=== PATIENT | male | born 1950 | race Hispanic/Latino ===

== ENCOUNTER 2019-02-27 14:13 | Observation (INO) | payer OTHER ==
[~2019-02-27] VITALS: Ht 177.8 cm; Wt 114.3 kg
[2019-02-27] MEDS ORDERED: FUROSEMIDE 10 MG/ML 4ML VIAL ONE (15:09)
[2019-02-27 15:14] LABS: BASOPHILS % (AUTO) 0.8 % (0.0-5.0); EOSINOPHILS % (AUTO) 4.9 % (0.0-8.0); LYMPHOCYTES % (AUTO) 26.2 % (21.0-51.0); MEAN CORPUSCULAR HEMOGLOBIN 29.9 pg (27.0-33.0); MEAN CORPUSCULAR HGB CONC 32.1 g/dL (32.0-36.0); MEAN CORPUSCULAR VOLUME 93.2 fL (79-99); MONOCYTES % (AUTO) 7.2 % (3.0-13.0); NEUTROPHILS % (AUTO) 60.9 % (40.0-77.0); PLATELET COUNT (AUTO) 209 K/uL (130-400); RED BLOOD CELL COUNT(AUTO) 3.65 MIL/uL (4.50-6.20); RED CELL DISTRIBUTION WIDTH 14.2 % (11.0-15.5)
[2019-02-27 15:23] LABS: CREATININE 2.8 mg/dL (0.5-1.5); POTASSIUM 3.7 mmol/L (3.5-5.1)
[2019-02-27 15:30] LABS: ALBUMIN 3.6 g/dL (3.5-5.0); BILIRUBIN,TOTAL 0.2 mg/dL (0.2-1.0); TOTAL PROTEIN, SERUM 7.7 g/dL (6.0-8.3)
[2019-02-27 15:43] LABS: B-TYPE NATRIURETIC PEPTIDE 176 pg/mL (0-100)
[2019-02-27 17:17] VITALS: BP 175/90
[2019-02-27] MEDS ORDERED: ATOR40TA69 PO (18:32)
[2019-02-27] MEDS ORDERED: VITA400C70 PO (18:32)
[2019-02-27] MEDS ORDERED: B12/1TAB3 PO (18:32)
[2019-02-27] MEDS ORDERED: ALLO100T PO (18:32)
[2019-02-27] MEDS ORDERED: FINA5TAB41 PO (18:32)
[2019-02-27] MEDS ORDERED: FERR-82 PO (18:32)
[2019-02-27] MEDS ORDERED: MONT10TA24 PO (18:32)
[2019-02-27] MEDS ORDERED: SPIR25TA PO (18:32)
[2019-02-27] MEDS ORDERED: FOLI0.8T43 PO (18:32)
[2019-02-27] MEDS ORDERED: TORS20TA4 PO (18:32)
[2019-02-27] MEDS ORDERED: HYDR-4154 PO (18:32)
[2019-02-27] MEDS ORDERED: METO200T49 PO (18:32)
[2019-02-27] MEDS ORDERED: RIVA15TA PO (18:32)
[2019-02-27] MEDS ORDERED: CHOL200074 PO (18:32)
[2019-02-27] MEDS ORDERED: INSNOV SQ (18:34)
[2019-02-27 19:00] VITALS: BP 141/79
[2019-02-27] MEDS ORDERED: SODIUM CHLORIDE 0.9% 10 ML VIAL IVP PRN (19:00)
[2019-02-27] MEDS ORDERED: CLONIDINE HCL 0.1 MG TABLET PO PRN (19:00)
[2019-02-27] MEDS ORDERED: LACTULOSE 20 GM/30 ML UDCUP PO PRN (19:00)
[2019-02-27] MEDS ORDERED: ONDANSETRON HCL 4 MG/2 ML VIAL IVP PRN (19:00)
[2019-02-27] MEDS: SPIRONOLACTONE 25 MG TAB PO SCH (21:12)
[2019-02-27] MEDS: MONTELUKAST SODIUM 10 MG TAB PO SCH (21:12)
[2019-02-27] MEDS: ATORVASTATIN CALCIUM 40 MG TABLET PO SCH (21:12)
[2019-02-27] MEDS ORDERED: ACETAMINOPHEN 325 MG TAB PO PRN ×2 (21:30)
[2019-02-27] MEDS ORDERED: MORPHINE SULFATE 4 MG/1ML SYG IV PRN (21:30)
[2019-02-27] MEDS ORDERED: LORAZEPAM 2 MG/ML 1 ML VIAL IVP PRN (21:30)
[2019-02-27] MEDS ORDERED: MORPHINE SULFATE 2 MG/ML 1ML SYG IV PRN (21:30)
[2019-02-27] MEDS ORDERED: ONDANSETRON HCL 4 MG/2 ML VIAL IV PRN (21:30)
[2019-02-27] MEDS: PHARMACY COMMUNICATION MISC SCH (21:30)
--- NOTE | 2019-02-27 22:04 | NUR ---
PA was called and notified pt. has insulin pump and B/S 54 and pt remained alert and coherent ,asymptomatic HS snack was given and consumed 100% rechecked B/S =74.No new order received.
[2019-02-27] MEDS: HYDRALAZINE HCL 25 MG TABLET PO SCH (22:09)
[2019-02-27] MEDS: NITROGLYCERIN 1GM/1 INCH PACKET TD SCH (22:10)
[2019-02-27 23:00] VITALS: BP 129/67
[2019-02-27] MEDS: IPRATROPIUM/ALBUTEROL SULFATE 3 ML SOLUTION IH SCH (23:08)
[2019-02-27] MEDS: FUROSEMIDE 10 MG/ML 4ML VIAL IVP SCH (23:17)
[2019-02-28] MEDS: PHARMACY COMMUNICATION MISC SCH ×4 (01:30→13:29)
[2019-02-28 03:00] VITALS: BP 135/68
[2019-02-28] MEDS: FUROSEMIDE 10 MG/ML 4ML VIAL IVP SCH (06:26)
[2019-02-28] MEDS: NITROGLYCERIN 1GM/1 INCH PACKET TD SCH ×3 (06:26→22:06)
[2019-02-28] MEDS: IPRATROPIUM/ALBUTEROL SULFATE 3 ML SOLUTION IH SCH ×3 (06:48→18:00)
[2019-02-28 07:50] VITALS: BP 150/81
--- NOTE | 2019-02-28 07:52 | NUR ---
DR. DHILLON IS IN TO SEE PATIENT.
[2019-02-28] MEDS: INSULIN ASPART 100 UNIT SQ SCH (09:00)
[2019-02-28] MEDS ORDERED: ENOXAPARIN SODIUM 30 MG/0.3 ML SQ SCH (09:00)
[2019-02-28] MEDS: METOPROLOL SUCCINATE PO SCH ×2 (09:00→21:00)
[2019-02-28] MEDS ORDERED: TORSEMIDE 20 MG PO SCH (09:00)
[2019-02-28] MEDS: ALLOPURINOL 100 MG TABLET PO SCH (09:17)
[2019-02-28] MEDS: HYDRALAZINE HCL 25 MG TABLET PO SCH ×3 (09:17→20:45)
[2019-02-28] MEDS: SPIRONOLACTONE 25 MG TAB PO SCH ×2 (09:17→20:45)
[2019-02-28] MEDS: RIVAROXABAN 15 MG TABLET PO SCH (09:17)
[2019-02-28] MEDS: FINASTERIDE 5 MG TABLET PO SCH (09:17)
[2019-02-28] MEDS: FOLIC ACID/VITAMIN B COMP W-C 1 MG CAPSULE PO SCH (09:17)
[2019-02-28] MEDS: FERROUS SULFATE 325 MG TABLET.DR PO SCH (09:17)
[2019-02-28] MEDS: FAMOTIDINE/PF 20 MG/2 ML VIAL IV SCH (09:18)
--- NOTE | 2019-02-28 12:00 | NUR ---
DR. URBANO IS MAKING HIS ROUNDS. LABS ORDERED.
[2019-02-28] MEDS ORDERED: TORS100T16 PO (12:01)
[2019-02-28 12:18] VITALS: BP 136/67
[2019-02-28] MEDS: FUROSEMIDE 10 MG/ML 2ML VIAL IV SCH ×2 (12:33→20:45)
--- NOTE | 2019-02-28 14:02 | NUR ---
DC PLAN VISITED WITH PATIENT. PATIENT LIVES ALONE. INDEPENDENT ABLE TO PERFORM ADL'S. PATIENT HAS NO SERVICES OR DME'S. FEELS SAFE TO RETURN HOME. GOES TO THE IN CLINIC. Addendum: 02/28/19 at 1403 by DRE ROJAS RN CM Amended: Links added.
[2019-02-28 16:04] VITALS: BP 121/53
[2019-02-28] MEDS ORDERED: METO-409 PO (18:48)
[2019-02-28 20:18] VITALS: BP 122/65
[2019-02-28] MEDS: MONTELUKAST SODIUM 10 MG TAB PO SCH (20:45)
[2019-02-28] MEDS: ATORVASTATIN CALCIUM 40 MG TABLET PO SCH (20:45)
[2019-02-28] MEDS ORDERED: NON-FORMULARY MEDICATION 1 EACH (Metoprolol Succinate 100 MG) PO SCH (21:00)
[2019-03-01] VITALS: BP 135/74
[2019-03-01 04:00] VITALS: BP 139/68
[2019-03-01 04:14] LABS: PHOSPHORUS 4.3 mg/dL (2.5-4.9); URIC ACID 8.6 mg/dL (2.6-7.2)
[2019-03-01 04:17] LABS: HEMATOCRIT 32.7 % (42-54); MEAN CORPUSCULAR HEMOGLOBIN 31.2 pg (27.0-33.0); MEAN CORPUSCULAR VOLUME 91.7 fL (79-99); PLATELET COUNT (AUTO) 202 K/uL (130-400); RED BLOOD CELL COUNT(AUTO) 3.57 MIL/uL (4.50-6.20); RED CELL DISTRIBUTION WIDTH 14.3 % (11.0-15.5); WHITE BLOOD COUNT (AUTO) 9.9 K/uL (4.8-10.8)
[2019-03-01 04:29] LABS: % IRON SATURATION 9.5 % (30-44)
[2019-03-01 04:51] LABS: EOSINOPHILS % (MANUAL) 4 % (1-6); LYMPHOCYTES % (MANUAL) 37 % (22-44); MAN.DIFF COMMENT-IMPRESSION MANUAL DIFFERENTIAL; MONOCYTES % (MANUAL) 5 % (2-9); SEGMENTED NEUTROPHILS % 54 % (40-70)
[2019-03-01 04:52] LABS: PLATELET MORPHOLOGY COMMENT ADEQUATE
[2019-03-01 05:22] LABS: MAGNESIUM 2.2 mg/dL (1.80-2.40)
[2019-03-01] MEDS: NITROGLYCERIN 1GM/1 INCH PACKET TD SCH ×2 (05:59→13:57)
[2019-03-01] MEDS: IPRATROPIUM/ALBUTEROL SULFATE 3 ML SOLUTION IH SCH ×3 (06:00→11:26)
[2019-03-01 07:00] VITALS: BP 151/65
[2019-03-01] MEDS: METOPROLOL SUCCINATE PO SCH (09:00)
[2019-03-01] MEDS: INSULIN ASPART 100 UNIT SQ SCH (09:00)
[2019-03-01] MEDS: ALLOPURINOL 100 MG TABLET PO SCH (09:45)
[2019-03-01] MEDS: SPIRONOLACTONE 25 MG TAB PO SCH (09:45)
[2019-03-01] MEDS: FERROUS SULFATE 325 MG TABLET.DR PO SCH (09:45)
[2019-03-01] MEDS: FUROSEMIDE 10 MG/ML 2ML VIAL IV SCH (09:45)
[2019-03-01] MEDS: FINASTERIDE 5 MG TABLET PO SCH (09:45)
[2019-03-01] MEDS: HYDRALAZINE HCL 25 MG TABLET PO SCH ×2 (09:45→13:57)
[2019-03-01] MEDS: RIVAROXABAN 15 MG TABLET PO SCH (09:45)
[2019-03-01] MEDS: FAMOTIDINE/PF 20 MG/2 ML VIAL IV SCH (09:45)
[2019-03-01] MEDS: FOLIC ACID/VITAMIN B COMP W-C 1 MG CAPSULE PO SCH (09:45)
[2019-03-01 12:00] VITALS: BP 162/87
[2019-03-01] MEDS ORDERED: IRON SUCROSE COMPLEX 300 MG in SODIUM CHLORIDE 0.9% 50 ML IV SCH (12:45)
[2019-03-01] MEDS ORDERED: IRON SUCROSE COMPLEX 300 MG in SODIUM CHLORIDE 0.9% 50 ML IVP SCH (13:45)
[2019-03-01 14:29] LABS: CREATININE 2.8 mg/dL (0.5-1.5); POTASSIUM 3.6 mmol/L (3.5-5.1)
[2019-03-01 14:34] LABS: ALBUMIN 3.6 g/dL (3.5-5.0); BILIRUBIN,TOTAL 0.3 mg/dL (0.2-1.0); TOTAL PROTEIN, SERUM 7.3 g/dL (6.0-8.3)
[2019-03-01 16:00] VITALS: BP 157/82
--- NOTE | 2019-03-01 18:22 | NUR ---
DISCHARGE INSTRUCTIONS GIVEN TO PATIENT. TEACH BACK METHOD USED TO EDUCATE PATIENT ON NEW MEDICATIONS PRESCRIBED, S/S TO MONITOR, WHEN TO CALL MD, DIET, AND F/U APPOINTMENTS. NEW PRESCRIPTION FOR LASIX AND LOPRESSOR WAS HANDED TO PATIENT. PIV REMOVED. MINIMAL BLEEDING CONTROLLED. TIP WAS INTACT. TELE PACK WAS REMOVED AND RETURNED. ALL BELONGINGS WERE PACKED AND BROUGHT HOME.
== END 2019-03-01 18:13 | disposition home or self-care (01) ==
LOC: EDH 14:13 → INTOOBSV 14:14 → EDHIP 14:14 → 2DH 17:00
PROVIDERS: ADMIT Internal Medicine; ATTEND Internal Medicine
DX: I13.2 Hypertensive heart and chronic kidney disease with heart failure and with stage 5 chronic kidney disease, or end stage renal disease (principal); N18.5 Chronic kidney disease, stage 5; N17.9 Acute kidney failure, unspecified; I50.31 Acute diastolic (congestive) heart failure; I25.10 Atherosclerotic heart disease of native coronary artery without angina pectoris; E11.22 Type 2 diabetes mellitus with diabetic chronic kidney disease; E11.51 Type 2 diabetes mellitus with diabetic peripheral angiopathy without gangrene; E78.5 Hyperlipidemia, unspecified; E87.5 Hyperkalemia; E11.21 Type 2 diabetes mellitus with diabetic nephropathy; D64.9 Anemia, unspecified; E66.9 Obesity, unspecified; I48.2 Chronic atrial fibrillation; J96.01 Acute respiratory failure with hypoxia; Z86.73 Personal history of transient ischemic attack (TIA), and cerebral infarction without residual deficits; Z91.19 Patient's noncompliance with other medical treatment and regimen; Z79.01 Long term (current) use of anticoagulants; Z79.4 Long term (current) use of insulin; Z95.1 Presence of aortocoronary bypass graft; Z79.899 Other long term (current) drug therapy
CPT/HCPCS: 36415 ×2; 71046; 80053 ×2; 82728; 82948 ×8; 83540; 83550; 83735; 83880; 84100; 84550; 85025 ×2; 93005; 93306; 94640 ×3; 94664; 96365; 96375 ×2; 96376 ×3; G0378 ×25; J1756; J1940 ×6; J3490 ×2; 96366